=== PATIENT | male | born 1980 | race Asian ===

== ENCOUNTER 2020-04-29 04:46 | Emergency (ER) | payer SELFPAY ==
[~2020-04-29] VITALS: Ht 170.2 cm; Wt 81.6 kg
--- NOTE | 2020-04-29 04:55 | NUR ---
BIBS FOR C/O L ARM NUMBNESS, SOB AND PALPITATION. PT REPORTED HAVING ON AND OFF CP FOR THE PAST YEAR AND ADMITTED ON DRINKING ALCOHOL. PT APEARS VERY ANXIOUS. AMBULATORY TO BED. WAS PLACED ON A MONITOR. SATTING 100% ON R/A . WILL CONT TO MONITOR
[2020-04-29] MEDS: LORAZEPAM INJ 2 MG/ML VIAL IM ONE (05:00)
[2020-04-29] MEDS ORDERED: LORAZEPAM INJ 2 MG/ML VIAL ONE (05:05)
[2020-04-29 05:26] LABS: CALCIUM, SERUM 8.9 mg/dL (8.5-10.1); CARBON DIOXIDE 22 mmol/L (21-32); CHLORIDE 101 mmol/L (98-107); CREATININE 0.9 mg/dL (0.6-1.3); GLUCOSE 119 mg/dL (74-106); POTASSIUM 3.5 mmol/L (3.5-5.1); SODIUM SERUM 139 mmol/L (136-145); UREA NITROGEN, BLOOD 13 mg/dL (7-18)
[2020-04-29 05:30] LABS: BASOPHILS % (AUTO) 0.2 % (0.0-2.0); EOSINOPHILS % (AUTO) 0.7 % (0.0-6.0); HEMATOCRIT 47 % (39-51); HEMOGLOBIN 15.6 g/dL (13.5-17.5); LYMPHOCYTES # (AUTO) 0.8 /CMM (0.8-4.8); LYMPHOCYTES % (AUTO) 9.4 % (20.0-44.0); MEAN CORPUSCULAR HGB CONC 33 g/dl (31.0-36.0); MEAN CORPUSCULAR VOLUME 91 fL (80-96); MONOCYTES # (AUTO) 0.9 /CMM (0.1-1.30); MONOCYTES % (AUTO) 11.2 % (2.0-12.0); NEUTROPHILS # (AUTO) 6.3 /CMM (1.8-8.9); NEUTROPHILS % (AUTO) 78.5 % (43.0-81.0); PLATELET COUNT (AUTO) 191 /CMM (150-450); RED BLOOD CELL COUNT(AUTO) 5.18 MIL/uL (4.5-6.0)
--- NOTE | 2020-04-29 05:46 | NUR ---
IV removed. Catheter intact and site benign. Pressure and 4x4 applied to site. No bleeding noted.
--- NOTE | 2020-04-29 06:06 | NUR ---
Patient discharged to home in stable condition. Written and verbal after care instructions given. Patient verbalizes understanding of instruction.
--- NOTE | 2020-04-29 06:06 | NUR ---
Note yobani in EDM - 04/29/20 at 0607 by RYDER IV removed. Catheter intact and site benign. Pressure and 4x4 applied to site. No bleeding noted. Patient discharged to home in stable condition. Written and verbal after care instructions given. Patient verbalizes understanding of instruction. ambulatory with a steady gait noted. advice pt not to drive or operate any machinery due to pt was given ativan. pt verbalize understanding and states "my dad is outside waiting for me".
[2020-04-29 06:07] VITALS: BP 123/82
== END 2020-04-29 06:07 | disposition home or self-care (01) ==
LOC: ER 04:48
DX: F41.1 Generalized anxiety disorder (principal); R94.31 Abnormal electrocardiogram [ECG] [EKG]
CPT/HCPCS: 36415; 71045; 80048; 84484; 85025; 93005 ×2; 96372; 99285; J2060